=== PATIENT | female | born 1965 | race Caucasian/White ===

== ENCOUNTER 2016-10-27 17:34 | Observation (INO) | payer OTHER ==
[~2016-10-27] VITALS: Ht 170.2 cm; Wt 72.7 kg
[2016-10-27] VITALS (7 sets, daily range): BP systolic 126–146; BP diastolic 75–88; PULSE 57–101; RESP 14–18; TEMP 98–98.9; O2SAT 97–100
[2016-10-27] MEDS ORDERED: AMIT10TA6 PO (17:52)
[2016-10-27] MEDS ORDERED: LEVO88TA2 PO (17:52)
--- NOTE | 2016-10-27 17:58 | PD ---
HPI Chief Complaint: Chest Pain Time Seen by Provider: 17:43 Travel History International Travel<30 days: No Contact w/Intl Traveler<30days: No Traveled to known affect area: No History of Present Illness HPI The patient is a 51-year-old female who presents emergency department for chest pain. The patient has a 3 to four-week history of intermittent chest pain which is described as substernal to left-sided, dull, achy, nonradiating. She occasionally has shortness of breath and mild nausea, but denies any vomiting or diaphoresis. The patient denies any exertional symptoms, occasionally will awaken in the middle of the night thinking she is going to " ". The patient denies any history of hypertension, does have a history of borderline hyperlipidemia, however, states she has a "good ratio ". The patient denies any tobacco use, diabetes, or known history of CAD. However, she states her mother had a stent placed at 55 and her grandmother from "sudden "at the age of 60. The patient denies any sexual or positional symptoms. The patient does states she is going through menopause and intermittently has diaphoresis. PFSH Past Medical History Migraines: Yes Thyroid Disease: Yes Influenza Vaccination: Yes ?: Not Menopausal: Yes Social History Alcohol Use: Yes (rare) Tobacco Use: No Substance Use: No Allergies-Medications (Allergen,Severity, Reaction): Coded Allergies: Biaxin (Verified Allergy, Mild, Hives, 10/27/16) Reported Meds & Prescriptions Reported Meds & Active Scripts Active Reported Amitriptyline (Amitriptyline HCl) 10 Mg Tab 10 Mg PO HS Levothyroxine (Levothyroxine Sodium) 88 Mcg Tab 88 Mcg PO DAILY Review of Systems Except as stated in HPI: all other systems reviewed are Neg General / Constitutional: No: Fever HENT: No: Lightheadedness Cardiovascular: Positive: Chest Pain or Discomfort, Diaphoresis, No: Dyspnea on exertion Gastrointestinal: Positive: Nausea, Indigestion (history of GERD), No: Vomiting Musculoskeletal: No: Edema Neurologic: No: Weakness Physical Exam Narrative GENERAL: Awake, alert, pleasant 51-year-old female who appears her stated age and is in no acute respiratory distress. SKIN: Focused skin assessment warm/dry. HEAD: Atraumatic. Normocephalic. EYES: Pupils equal and round. No scleral icterus. No injection or drainage. ENT: No nasal bleeding or discharge. Mucous membranes pink and moist. NECK: Trachea midline. No JVD. CARDIOVASCULAR: Regular rate and rhythm. No murmur appreciated. Palpation of the chest wall does not reproduce symptoms. RESPIRATORY: No accessory muscle use. Clear to auscultation. Breath sounds equal bilaterally. GASTROINTESTINAL: Abdomen soft, non-tender, nondistended. No epigastric tenderness. Negative Esteves's. MUSCULOSKELETAL: No obvious deformities. No clubbing. No cyanosis. No edema. NEUROLOGICAL: Awake and alert. No obvious cranial nerve deficits. Motor grossly within normal limits. Normal speech. PSYCHIATRIC: Appropriate mood and affect; insight and judgment normal. Data Data Last Documented VS Vital Signs Date Time Temp Pulse Resp B/P Pulse Ox O2 Delivery O2 Flow Rate FiO2 10/27/16 18:30 67 14 135/87 100 Nasal Cannula 2 10/27/16 17:36 98.9 Orders Electrocardiogram (10/27/16 17:53) Ckmb (Isoenzyme) Profile (10/27/16 17:53) Complete Blood Count With Diff (10/27/16 17:53) Comprehensive Metabolic Panel (10/27/16 17:53) Magnesium (Mg) (10/27/16 17:53) Prothrombin Time / Inr (Pt) (10/27/16 17:53) Act Partial Throm Time (Ptt) (10/27/16 17:53) Troponin I (10/27/16 17:53) Lipase (10/27/16 17:53) Chest, Single Ap (10/27/16 17:53) Ecg Monitoring (10/27/16 17:53) Bilateral Bp Monitoring (10/27/16 17:53) Iv Access Insert/Monitor (10/27/16 17:53) Oximetry (10/27/16 17:53) Oxygen Administration (10/27/16 17:53) Sodium Chloride 0.9% Flush (Ns Flush) (10/27/16 18:00) Sodium Chlorid 0.9% 500 Ml Inj (Ns 500 M (10/27/16 18:00) CKMB (10/27/16 17:50) CKMB% (10/27/16 17:50) Labs Laboratory Tests Test 10/27/16 17:50 White Blood Count 5.8 TH/MM3 Red Blood Count 4.78 MIL/MM3 Hemoglobin 14.3 GM/DL Hematocrit 43.1 % Mean Corpuscular Volume 90.3 FL Mean Corpuscular Hemoglobin 30.0 PG Mean Corpuscular Hemoglobin 33.2 % Concent Red Cell Distribution Width 13.3 % Platelet Count 191 TH/MM3 Mean Platelet Volume 8.1 FL Neutrophils (%) (Auto) 55.2 % Lymphocytes (%) (Auto) 32.0 % Monocytes (%) (Auto) 10.1 % Eosinophils (%) (Auto) 2.2 % Basophils (%) (Auto) 0.5 % Neutrophils # (Auto) 3.2 TH/MM3 Lymphocytes # (Auto) 1.9 TH/MM3 Monocytes # (Auto) 0.6 TH/MM3 Eosinophils # (Auto) 0.1 TH/MM3 Basophils # (Auto) 0.0 TH/MM3 CBC Comment DIFF FINAL Differential Comment Prothrombin Time 11.2 SEC Prothromb Time International 1.0 RATIO Ratio Activated Partial 26.7 SEC Thromboplast Time Sodium Level 139 MEQ/L Potassium Level 3.5 MEQ/L Chloride Level 104 MEQ/L Carbon Dioxide Level 26.9 MEQ/L Anion Gap 8 MEQ/L Blood Urea Nitrogen 9 MG/DL Creatinine 0.89 MG/DL Estimat Glomerular Filtration 67 ML/MIN Rate Random Glucose 103 MG/DL Calcium Level 9.4 MG/DL Magnesium Level 2.1 MG/DL Total Bilirubin 0.4 MG/DL Aspartate Amino Transf 21 U/L (AST/SGOT) Alanine Aminotransferase 18 U/L (ALT/SGPT) Alkaline Phosphatase 68 U/L Total Creatine Kinase 167 U/L Creatine Kinase MB 1.7 NG/ML Troponin I LESS THAN 0.02 NG/ML Total Protein 7.6 GM/DL Albumin 4.2 GM/DL Lipase 229 U/L Exceptions Acute Myocardial Infarction ASA Not Given on Arrival: Already taken by patient MDM Medical Decision Making Medical Screen Exam Complete: Yes Emergency Medical Condition: Yes Medical Record Reviewed: Yes Interpretation(s) EKG reveals normal sinus rhythm with a rate of 77. RSR prime in V1 consistent with incomplete right bundle branch block. Laboratory Tests Test 10/27/16 17:50 White Blood Count 5.8 TH/MM3 Red Blood Count 4.78 MIL/MM3 Hemoglobin 14.3 GM/DL Hematocrit 43.1 % Mean Corpuscular Volume 90.3 FL Mean Corpuscular Hemoglobin 30.0 PG Mean Corpuscular Hemoglobin 33.2 % Concent Red Cell Distribution Width 13.3 % Platelet Count 191 TH/MM3 Mean Platelet Volume 8.1 FL Neutrophils (%) (Auto) 55.2 % Lymphocytes (%) (Auto) 32.0 % Monocytes (%) (Auto) 10.1 % Eosinophils (%) (Auto) 2.2 % Basophils (%) (Auto) 0.5 % Neutrophils # (Auto) 3.2 TH/MM3 Lymphocytes # (Auto) 1.9 TH/MM3 Monocytes # (Auto) 0.6 TH/MM3 Eosinophils # (Auto) 0.1 TH/MM3 Basophils # (Auto) 0.0 TH/MM3 CBC Comment DIFF FINAL Differential Comment Prothrombin Time 11.2 SEC Prothromb Time International 1.0 RATIO Ratio Activated Partial 26.7 SEC Thromboplast Time Sodium Level 139 MEQ/L Potassium Level 3.5 MEQ/L Chloride Level 104 MEQ/L Carbon Dioxide Level 26.9 MEQ/L Anion Gap 8 MEQ/L Blood Urea Nitrogen 9 MG/DL Creatinine 0.89 MG/DL Estimat Glomerular Filtration 67 ML/MIN Rate Random Glucose 103 MG/DL Calcium Level 9.4 MG/DL Magnesium Level 2.1 MG/DL Total Bilirubin 0.4 MG/DL Aspartate Amino Transf 21 U/L (AST/SGOT) Alanine Aminotransferase 18 U/L (ALT/SGPT) Alkaline Phosphatase 68 U/L Total Creatine Kinase 167 U/L Creatine Kinase MB 1.7 NG/ML Troponin I LESS THAN 0.02 NG/ML Total Protein 7.6 GM/DL Albumin 4.2 GM/DL Lipase 229 U/L Differential Diagnosis Differential diagnosis includes GERD, esophageal spasm, acute coronary syndrome , gastritis, peptic ulcer disease, pulmonary embolism, pleural effusion, hiatal hernia. Narrative Course IV was established, labs are drawn and sent, and the patient was placed on cardiac telemetry monitoring and continuous pulse oximetry monitoring. EKG was ordered and interpreted. The patient took aspirin prior to arrival and currently has no pain. The patient does have a history of questionable hyperlipidemia significant family medical history for early CAD. She denies any previous stress test or cardiac catheterization. She does have a history of GERD, however, states the symptoms are somewhat different. The patient has no tachycardia or hypoxia, no pleuritic chest pain, I doubt pulmonary embolism. Initial set of enzymes are unremarkable. Chest x-rays negative. The patient will be 23 hour observation to chest pain center for serial cardiac enzymes and further evaluation by cardiology. Physician Communication Physician Communication The patient will be a 23 hour observation to the chest pain Center for serial cardiac enzymes and further evaluation by cardiology. Diagnosis Primary Impression: Chest pain Qualified Code: R07.9 - Chest pain, unspecified type Admitting Information Admitting Physician Requests: Observation Condition: Stable Brenton Geller MD October 27, 2016 17:58
[2016-10-27] MEDS ORDERED: SODIUM CHLORID 0.9% 500 ML INJ 500 ML IV ONE (18:00)
[2016-10-27] MEDS ORDERED: SODIUM CHLORIDE 0.9% FLUSH 10 ML FLUSH IVF PRN (18:00)
[2016-10-27 18:13] LABS: AUTOMATED NEUTROPHIL # 3.2 TH/MM3 (1.8-7.7); BASOPHIL % 0.5 % (0.0-2.0); EOSINOPHIL # 0.1 TH/MM3 (0-0.4); EOSINOPHIL % 2.2 % (0.0-4.0); HEMATOCRIT 43.1 % (35.0-46.0); HEMO FLAGS DIFF FINAL; LYMPHOCYTE # 1.9 TH/MM3 (1.0-4.8); MEAN CELL VOLUME 90.3 FL (80.0-100.0); MEAN CORPUSCULAR HGB CONC 33.2 % (32.0-36.0); MONO % 10.1 % (0.0-8.0); NEUT % 55.2 % (16.0-70.0); PLATELET COUNT 191 TH/MM3 (150-450); RED BLOOD COUNT 4.78 MIL/MM3 (4.00-5.30); RED CELL DISTRIBUTION WIDTH 13.3 % (11.6-17.2); WHITE BLOOD COUNT 5.8 TH/MM3 (4.0-11.0)
--- NOTE | 2016-10-27 18:16 | RADRPT ---
EXAM DATE/TIME: 10/27/2016 18:01 [facility] COMPARISON: No previous studies available for comparison. INDICATIONS : Chest pain on and off for the past few weeks. MEDICAL HISTORY : None. SURGICAL HISTORY : None. ENCOUNTER: Initial ACUITY: 3 weeks PAIN SCORE: 5/10 LOCATION: Bilateral chest FINDINGS: A single view of the chest demonstrates the lungs to be symmetrically aerated without evidence of mas s, infiltrate or effusion. The cardiomediastinal contours are unremarkable. Osseous structures are intact. CONCLUSION: No acute disease. Otf Snyder MD on October 27, 2016 at 18:13 Board Certified Radiologist. This report was verified electronically.
[2016-10-27 18:29] LABS: APTT (PATIENT) 26.7 SEC (24.3-30.1); PROTHROMBIN TIME - PATIENT 11.2 SEC (9.8-11.6)
[2016-10-27 18:35] LABS: ANION GAP 8 MEQ/L (5-15); AST (GOT) 21 U/L (15-37); BICARBONATE 26.9 MEQ/L (21.0-32.0); BLOOD UREA NITROGEN 9 MG/DL (7-18); CHLORIDE 104 MEQ/L (98-107); GLOMERULAR FILTRATION RATE 67 ML/MIN (>89); MAGNESIUM 2.1 MG/DL (1.5-2.5); POTASSIUM 3.5 MEQ/L (3.5-5.1); SODIUM (NA) 139 MEQ/L (136-145)
[2016-10-27 18:40] LABS: ALKALINE PHOSPHATASE 68 U/L (45-117); ALT (GPT) 18 U/L (10-53); CREATINE KINASE 167 U/L (26-192); TOTAL BILIRUBIN ADULT 0.4 MG/DL (0.2-1.0)
[2016-10-27 18:52] LABS: CKMB 1.7 NG/ML (0.5-3.6)
[2016-10-27] MEDS ORDERED: NITROGLYCERIN 0.4 MG SL 25 TABS/BTL SL PRN (19:00)
[2016-10-27] MEDS ORDERED: SODIUM CHLORIDE 0.9% FLUSH 10 ML FLUSH IV FLUSH PRN (19:00)
[2016-10-27] MEDS ORDERED: ACETAMINOPHEN 500 MG CPLT PO PRN (19:00)
[2016-10-27] MEDS ORDERED: ACETAMINOPHEN/HYDROcodone 325 MG/7.5 MG TAB PO PRN (19:00)
[2016-10-27] MEDS ORDERED: MORPHINE SULFATE 4 MG/ML INJ IV PRN (19:00)
[2016-10-27] MEDS ORDERED: ONDANSETRON HCL 4 MG/2 ML VIAL IV PRN (19:00)
[2016-10-27] MEDS ORDERED: SODIUM CHLORIDE 0.9% FLUSH 10 ML FLUSH IV FLUSH SCH (21:00)
[2016-10-27 21:48] LABS: CREATINE KINASE 142 U/L (26-192)
[2016-10-27 22:01] LABS: CKMB 1.2 NG/ML (0.5-3.6)
[2016-10-28 00:02] VITALS: BP 116/75; PULSE 68; RESP 21; TEMP 98.4; O2SAT 96
[2016-10-28 00:10] VITALS: PULSE 67
[2016-10-28 00:22] LABS: CREATINE KINASE 140 U/L (26-192)
[2016-10-28 04:35] VITALS: PULSE 54
[2016-10-28 05:43] VITALS: BP 115/70; PULSE 78; RESP 21; TEMP 98; O2SAT 99
--- NOTE | 2016-10-28 05:52 | EKG ---
Date Performed: 10/27/2016 Time Performed: 17:43:42 PTAGE: 51 years EKG: Sinus rhythm POSSIBLE LEFT ATRIAL ENLARGEMENT INCOMPLETE RIGHT BUNDLE BRANCH BLOCK BORDERLINE ECG NO PREVIOUS TRACING DOCTOR: Ben Sullivan Interpretating Date/Time 10/28/2016 05:50:41
[2016-10-28 07:54] VITALS: BP 130/78; PULSE 63; RESP 18; TEMP 97.9; O2SAT 99
--- NOTE | 2016-10-28 08:27 | HHI.DCPOC ---
Discharge Care Plan Diagnosis: (1) Chest pain Goals to Promote Your Health * To prevent worsening of your condition and complications * To maintain your health at the optimal level Directions to Meet Your Goals Take your medications as prescribed Follow your dietary instruction Follow activity as directed Keep your appointments as scheduled Take your immunizations and boosters as scheduled If your symptoms worsen call your PCP, if no PCP go to Urgent Care Center or Emergency Room Smoking is Dangerous to Your Health. Avoid second hand smoke Call the 24-hour hour crisis hotline for domestic abuse at Mik Kirkland October 28, 2016 08:27
[2016-10-28] MEDS ORDERED: LEVOTHYROXINE SODIUM 88 MCG TAB PO SCH (08:30)
--- NOTE | 2016-10-28 08:34 | HHI.HP ---
[facility] Primary Care Physician Steven Guevara MD Chief Complaint CHEST PAIN History of Present Illness This is a 51-year-old female that presents to the ED complaining of a central/ left-sided chest pressure intermittently for 2 weeks. Nothing in particular brings him on med she's been able to follow trends and notices that it' almost is a guarantee to happen 30 minutes after lying down in bed. It is not exertional. She sometimes is had some shortness breath and nausea but states nauseous not uncommon for her. Denies diaphoresis. She has had gastric ulcers in the past but does not feel similar symptoms. Denies blood in stool. Denies recent illness. Review of Systems General: Patient denies fevers, chills recent, and recent travel HEENT: Patient denies headache, sore throat, difficulty swallowing. Cardiovascular: Has the chest discomfort as mentioned above. Denies sensation of heart beating rapidly or irregularly. No syncope. Denies diaphoresis. Respiratory: She is some time short of breath. Denies inspirational chest discomfort. Denies coughing wheezing or hemoptysis. GI: She is sometimes nauseous. Patient denies vomiting, diarrhea, abdominal pain, bloody stools. Musculoskeletal: Patient denies joint pain or edema. Denies calf pain or edema. Neurovascular: Patient denies numbness, tingling, weakness in extremities. Denies headache. Endocrine: Denies polyuria and polydipsia. Hematologic: Denies easy bruising. Skin: Denies rash or itching. Past Family Social History Allergies: Coded Allergies: Biaxin (Verified Allergy, Mild, Hives, 10/27/16) Past Medical History Hypothyroidism. Migraines. Denies hypertension, hyperlipidemia, diabetes, and known CAD. Past Surgical History Sinus surgeries. Reported Medications Reported Meds & Active Scripts Active Reported Amitriptyline (Amitriptyline HCl) 10 Mg Tab 10 Mg PO HS Levothyroxine (Levothyroxine Sodium) 88 Mcg Tab 88 Mcg PO DAILY Active Ordered Medications Current Medications Medications (Trade) Dose Ordered Sig/Dustin Route Start Time Stop Time Status Last Admin (NS Flush) 2 ml UNSCH PRN IV FLUSH 10/27/16 19:00 (NS Flush) 2 ml BID IV FLUSH 10/27/16 21:00 10/27/16 21:00 (Tylenol) 500 mg Q4H PRN PO 10/27/16 19:00 (Bandera 7.5-325 Mg) 1 tab Q4H PRN PO 10/27/16 19:00 (Morphine Inj) 2 mg Q4H PRN IV 10/27/16 19:00 (Zofran Inj) 4 mg Q6H PRN IV 10/27/16 19:00 (Nitrostat Sl) 0.4 mg Q5M PRN SL 10/27/16 19:00 (Aspirin) 325 mg DAILY PO 10/28/16 09:00 (Elavil) 10 mg HS PO 10/28/16 21:00 (Synthroid) 88 mcg DAILY@06 PO 10/28/16 08:30 Family History She states her mother had stents in her late 50s. Social History Patient is a lifetime nonsmoker denies illicit drugs. She has occasional alcohol. She has been for 15 years. She is a home health nurse. Physical Exam Vital Signs Vital Signs Date Time Temp Pulse Resp B/P Pulse Ox O2 Delivery O2 Flow Rate FiO2 10/28/16 07:54 97.9 63 18 130/78 99 10/28/16 05:43 98.0 78 21 115/70 99 10/28/16 04:35 54 10/28/16 00:10 67 10/28/16 00:02 98.4 68 21 116/75 96 10/27/16 20:42 98.0 57 18 130/75 98 10/27/16 19:32 100 Nasal Cannula 2.00 10/27/16 19:05 72 18 132/88 97 Room Air 10/27/16 18:30 67 14 135/87 100 Nasal Cannula 2 10/27/16 18:10 69 14 126/80 100 Nasal Cannula 2 10/27/16 18:10 70 14 126/80 100 Nasal Cannula 2 10/27/16 18:10 100 Nasal Cannula 2 10/27/16 17:47 82 14 100 Nasal Cannula 2 10/27/16 17:43 88 16 146/85 98 10/27/16 17:36 98.9 101 17 134/86 98 Physical Exam GENERAL: This is a well-nourished, well-developed patient, in no apparent distress. Patient speaks in clear complete sentences. Patient is pleasant. HEENT: Head is atraumatic and normocephalic. Neck is supple without lymphadenopathy and trachea is midline. No JVD or carotid bruits. CARDIOVASCULAR: Regular rate and rhythm without murmurs, gallops, or rubs. RESPIRATORY: Clear to auscultation. Breath sounds equal bilaterally. No wheezes , rales, or rhonchi. Chest wall is nontender. No use of accessory muscles. GASTROINTESTINAL: Abdomen is nontender, nondistended. Abdomen soft. No obvious pulsatile mass or bruit. No CVA tenderness. Strong femoral pulses bilaterally. Normal bowel sounds in all quadrants. MUSCULOSKELETAL: Patient is moving upper and lower extremities freely. No calf tenderness or edema, no Homans sign. Strong pulses in upper and lower extremities. NEUROLOGICAL: Patient is alert and oriented. Cranial nerves 2-12 are grossly intact. No focal deficits and speech is clear. SKIN: No rash and turgor is normal. Laboratory Laboratory Tests Test 10/27/16 10/27/16 10/27/16 17:50 21:05 23:36 White Blood Count 5.8 Red Blood Count 4.78 Hemoglobin 14.3 Hematocrit 43.1 Mean Corpuscular Volume 90.3 Mean Corpuscular Hemoglobin 30.0 Mean Corpuscular Hemoglobin 33.2 Concent Red Cell Distribution Width 13.3 Platelet Count 191 Mean Platelet Volume 8.1 Neutrophils (%) (Auto) 55.2 Lymphocytes (%) (Auto) 32.0 Monocytes (%) (Auto) 10.1 Eosinophils (%) (Auto) 2.2 Basophils (%) (Auto) 0.5 Neutrophils # (Auto) 3.2 Lymphocytes # (Auto) 1.9 Monocytes # (Auto) 0.6 Eosinophils # (Auto) 0.1 Basophils # (Auto) 0.0 CBC Comment DIFF FINAL Differential Comment Prothrombin Time 11.2 Prothromb Time International 1.0 Ratio Activated Partial 26.7 Thromboplast Time Sodium Level 139 Potassium Level 3.5 Chloride Level 104 Carbon Dioxide Level 26.9 Anion Gap 8 Blood Urea Nitrogen 9 Creatinine 0.89 Estimat Glomerular Filtration 67 Rate Random Glucose 103 Calcium Level 9.4 Magnesium Level 2.1 Total Bilirubin 0.4 Aspartate Amino Transf 21 (AST/SGOT) Alanine Aminotransferase 18 (ALT/SGPT) Alkaline Phosphatase 68 Total Creatine Kinase 167 142 140 Creatine Kinase MB 1.7 1.2 1.0 Troponin I LESS THAN 0.02 LESS THAN 0.02 LESS THAN 0.02 Total Protein 7.6 Albumin 4.2 Lipase 229 Result Diagram: 10/27/16174910/27/161749 Imaging Last 24 hours Impressions Chest X-Ray 10/27/161752 Signed Impressions: Service Date/Time: Thursday, October 27, 2016 18:01 - CONCLUSION: No acute disease. Otf Snyder MD Course EKGs having complete right bundle branch block. Sinus rhythm. No significant ST segment depressions or elevations. Assessment and Plan Assessment and Plan * Chest pain: Patient has had serial cardiac enzymes and EKGs for ruling out purposes. She has been evaluated by Dr. Олег Park of cardiology in the chest pain center. She has undergone a Pj protocol ETT and it is nonischemic. She'll be discharged home with this time with instructions to follow-up with primary care physician as well as her personal lines sales executive. Patient is agreeable to this plan. She is stable at this time. Mik Kirkland October 28, 2016 08:34
[2016-10-28] MEDS ORDERED: ASPIRIN 325 MG TAB PO SCH (09:00)
--- NOTE | 2016-10-28 14:08 | EKG ---
Date Performed: 10/27/2016 Time Performed: 21:23:21 PTAGE: 51 years EKG: Sinus rhythm POSSIBLE LEFT ATRIAL ENLARGEMENT INCOMPLETE RIGHT BUNDLE BRANCH BLOCK BORDERLINE ECG PREVIOUS TRACING : 10/27/2016 17.43 Since previous tracing, no significant change noted DOCTOR: Олег Park Interpretating Date/Time 10/28/2016 14:06:38
--- NOTE | 2016-10-28 14:08 | EKG ---
Date Performed: 10/27/2016 Time Performed: 23:49:52 PTAGE: 51 years EKG: Sinus rhythm POSSIBLE LEFT ATRIAL ENLARGEMENT INCOMPLETE RIGHT BUNDLE BRANCH BLOCK BORDERLINE ECG PREVIOUS TRACING : 10/27/2016 23.48 Since previous tracing, no significant change noted DOCTOR: Олег Park Interpretating Date/Time 10/28/2016 14:06:22
--- NOTE | 2016-10-28 14:39 | TR ---
Date Performed: 10/28/2016 Time Performed: 08:05:55 DOCTOR: Олег Park DRUG LIST: CLINICAL HISTORY: REASON FOR TEST: REASON FOR ENDING: OBSERVATION: CONCLUSION: RAMAN PROTOCOL. NO CP 0R SOB.Maximum MH=132 % Max HR Achieved=85.0% Maximum ZE=825/8 2 Total Exercise Time=6:01 COMMENTS: Patient exercised using the Raman protocol. No electrocardiographic changes were seen to suggest ischemia. Hemodynamic response to exercise was normal. No significant arrhythmia was prese nt.
[2016-10-28] MEDS ORDERED: AMITRIPTYLINE HCL 10 MG TAB PO SCH (21:00)
== END 2016-10-28 09:32 | disposition home or self-care (01) ==
LOC: NEPD 17:34 → NEDA 18:57 → NEPHCDU 20:23
PROVIDERS: ADMIT Internal Medicine Interventional Cardiology; ATTEND Internal Medicine Interventional Cardiology
DX: R07.89 Other chest pain (principal); R06.02 Shortness of breath; E03.9 Hypothyroidism, unspecified; Z88.1 Allergy status to other antibiotic agents; Z87.11 Personal history of peptic ulcer disease; Z82.49 Family history of ischemic heart disease and other diseases of the circulatory system
CPT/HCPCS: 71010; 80053; 82550; 82552; 83690; 83735; 84484; 85025; 85610; 85730; 93005; 93017; 96360; 99285; G0378; J7040